=== PATIENT | female | born 1935 | race Two or more races ===

== ENCOUNTER 2020-10-23 10:30 | Inpatient (IN) | payer OTHER ==
[~2020-10-23] VITALS: Ht 160 cm; Wt 56.2 kg
[2020-10-23] MEDS ORDERED: SYNTHROID50 MCG (12:47)
[2020-10-23] MEDS ORDERED: SYNTHROID75 MCG (12:48)
[2020-10-23] MEDS ORDERED: LIPITOR20 MG PO (14:15)
[2020-10-30] MEDS ORDERED: PEG3350238 GM (13:48)
[2020-10-30] MEDS ORDERED: VOLTAREN100 GM (13:48)
[2020-10-30] MEDS ORDERED: DICLOFENAC POTA50 MG (13:48)
[2020-10-31] MEDS ORDERED: ACETAMINOPHEN500 M2 PO (09:19)
== END 2020-10-31 13:06 | disposition home or self-care (01) | DRG 330 ==
LOC: SURH 10-30 10:30 → O/R 10-30 11:10 → SURH 10-30 20:34 → SURG 10-30 20:35
PROVIDERS: ADMIT Surgery; ATTEND Surgery
PROC: 0DQR0ZZ Repair Anal Sphincter, Open Approach (ICD-10-PCS; 2020-10-30)
PROC: 0DBP0ZZ Excision of Rectum, Open Approach (ICD-10-PCS; 2020-10-30)
PROC: 4A12X4Z Monitoring of Cardiac Electrical Activity, External Approach (ICD-10-PCS; 2020-10-30)
PROC: 3E0F7SF Introduction of Other Gas into Respiratory Tract, Via Natural or Artificial Opening (ICD-10-PCS; 2020-10-30)
PROC: 0DBN0ZZ Excision of Sigmoid Colon, Open Approach (ICD-10-PCS; principal; 2020-10-30 11:00)
DX: K62.3 Rectal prolapse (principal); K62.5 Hemorrhage of anus and rectum; K62.89 Other specified diseases of anus and rectum; R15.9 Full incontinence of feces